=== PATIENT | female | born 1950 | race Caucasian/White ===

== ENCOUNTER 2021-09-13 14:19 | Emergency (ER) | payer OTHER ==
[~2021-09-13] VITALS: Ht 152.4 cm; Wt 74.8 kg
--- NOTE | 2021-09-13 14:36 | NUR ---
ER in triage examining patient.
[2021-09-13] MEDS ORDERED: MORPHINE 4 MG INJ. 4 MG/ML VIAL IM ONE ×2 (14:45→16:45)
[2021-09-13 15:25] VITALS: BP_SYST 191
--- NOTE | 2021-09-13 15:30 | NUR ---
Patient to [facility] for evaluation.
--- NOTE | 2021-09-13 15:32 | NUR ---
Patient brought in from home in wheelchair accompanied by son complaining of severe pain in his neck radiates to her back and wrapping around her right side under breast. Patient also reports patient has a right toe fracture and sutures to her left eye. Pain 8 out of 10. Patient arrives with brace to neck
[2021-09-13 16:44] VITALS: BP_SYST 132
--- NOTE | 2021-09-13 16:44 | NUR ---
Patient given written and verbal discharge instructions and verbalizes understanding. ER MD discussed with patient the results and treatment provided. Patient in stable condition. ID arm band removed. Rx of motrin and norco given. Patient educated on pain management and to follow up with PMD. Pain Scale 0/10 Opportunity for questions provided and answered. Medication side effect fact sheet provided.
== END 2021-09-13 16:44 | disposition home or self-care (01) ==
LOC: SED 14:19
DX: S13.4XXA Sprain of ligaments of cervical spine, initial encounter (principal); W19.XXXA Unspecified fall, initial encounter; Y93.89 Activity, other specified; Y92.89 Other specified places as the place of occurrence of the external cause; Y99.8 Other external cause status
CPT/HCPCS: 71045; 72125; 76376; 96372; 99284; J2270